=== PATIENT | male | born 1930 | race African-American/Black ===

== ENCOUNTER 2017-12-30 15:30 | Inpatient (IN) ==
[2017-12-30] MEDS ORDERED: SODIUM CHLORIDE 0.9% 1,000 ML IV STA (15:47)
[2017-12-30] MEDS ORDERED: ONDANSETRON 4 MG/2 ML VIAL IV STA (15:47)
[2017-12-30] MEDS ORDERED: PANTOPRAZOLE 40 MG VIAL IV STA (15:47)
[2017-12-30] MEDS ORDERED: ONDANSETRON 4 MG/2 ML VIAL ONE (16:21)
[2017-12-30] MEDS ORDERED: PANTOPRAZOLE 40 MG VIAL IV ONE (16:21)
[2017-12-30 16:30] LABS: Basophils % 0.1 % (0.0-0.8); Eosinophils % 0.2 % (0.00-10.9); Hemoglobin 4.3 GM/DL (14.0-18.0); Immature Granulocytes Absolute 0.13 #; Lymphocytes # 1.7 10*3/uL (1.4-4.0); Mean Corpuscular HGB Conc 28.7 GM/DL (32-36); Mean Corpuscular Hemoglobin 19 PG (27-34); Mean Corpuscular Volume 64.9 FL (87-102); Mean Platelet Volume 8.6 FL (9.6-12.0); Monocytes # 1.2 10*3/uL (0.11-0.8); Monocytes % 9.3 % (1.7-12.7); NRBC # 0.02 10*3/uL; Neutrophils # 10.2 10*3/uL (1.4-7.4); Neutrophils % 76.4 % (38.7-73.9); Platelet Count 362 T/CUMM (130-400); Red Blood Count 2.31 MC/CUMM (3.8-5.5); Red Cell Distribution Width 20.2 % (9.3-17.3); White Blood Count 13.4 T/CUMM (4-12)
[2017-12-30 16:52] LABS: Alanine Aminotransferase 15 U/L (16-61); Albumin 3.5 G/DL (3.4-5.0); Alkaline Phosphatase 81 U/L (45-117); Amylase 77 U/L (25-115); Aspartate Amino Transferase 12 U/L (0-37); Blood Urea Nitrogen 20 MG/DL (7-18); Calcium 9.3 MG/DL (8.5-10.1); Glucose 146 MG/DL (74-106); Osmolality,Calculated 273.2 MOS/KG (273-304); Potassium 3.5 MMOL/L (3.5-5.1); Sodium 134 MMOL/L (136-145); Total Protein 6.9 G/DL (6.4-8.3)
[2017-12-30 16:54] LABS: Troponin I Only 0.052 NG/ML (0.00-0.045)
[2017-12-30 16:58] LABS: Lactic Acid 2.7 MMOL/L (0.4-2.0)
[2017-12-30] MEDS ORDERED: SODIUM CHLORIDE 0.9% 1,000 ML IV PRN (17:28)
[2017-12-30] MEDS ORDERED: GLUCAGON 1 MG VIAL IM PRN (21:50)
[2017-12-30] MEDS ORDERED: ONDANSETRON 4 MG/2 ML VIAL IV PRN (21:50)
[2017-12-30] MEDS ORDERED: DEXTROSE 50% 25 GM/50 ML VIAL IV PRN (21:50)
[2017-12-31] MEDS ORDERED: SODIUM CHLORIDE 0.9% 1,000 ML IV PRN ×2 (00:02→15:10)
[2017-12-31] MEDS: INSULIN REGULAR 100 UNIT/ML SUBCUT SCH ×4 (04:48→19:10)
[2017-12-31 07:25] LABS: Basophils % 0.3 % (0.0-0.8); Eosinophils # 0.1 10*3/uL (0.0-0.87); Eosinophils % 0.9 % (0.00-10.9); Hematocrit 18.1 VOL% (42.0-52.0); Immature Granulocytes % 0.6 %; Immature Granulocytes Absolute 0.07 #; Lymphocytes # 1.5 10*3/uL (1.4-4.0); Lymphocytes % 12.8 % (21.2-54.2); Mean Corpuscular HGB Conc 29.3 GM/DL (32-36); Mean Corpuscular Hemoglobin 21 PG (27-34); Mean Corpuscular Volume 69.9 FL (87-102); Mean Platelet Volume 8.8 FL (9.6-12.0); Monocytes # 1.4 10*3/uL (0.11-0.8); Monocytes % 11.4 % (1.7-12.7); NRBC # 0.03 10*3/uL; Neutrophils # 8.8 10*3/uL (1.4-7.4); Platelet Count 308 T/CUMM (130-400); Red Blood Count 2.59 MC/CUMM (3.8-5.5); Red Cell Distribution Width 22.8 % (9.3-17.3); White Blood Count 11.9 T/CUMM (4-12)
[2017-12-31 07:34] LABS: Hemoglobin 5.3 GM/DL (14.0-18.0)
[2017-12-31 07:35] LABS: PT Patient Result 10.6 SECS; Partial Thromboplastin Time 26.8 SECS (0-40)
[2017-12-31 07:48] LABS: Giant Platelets Few; Hypochromasia 2+; Ovalocytes Slight; Platelet Estimate Adequate
[2017-12-31 07:58] LABS: Blood Urea Nitrogen 17 MG/DL (7-18); Calcium 8.5 MG/DL (8.5-10.1); Glucose 61 MG/DL (74-106); Osmolality,Calculated 274.7 MOS/KG (273-304); Potassium 4.1 MMOL/L (3.5-5.1); Sodium 138 MMOL/L (136-145); Troponin I Only 0.052 NG/ML (0.00-0.045)
[2017-12-31] MEDS: PANTOPRAZOLE 40 MG VIAL IV SCH (09:31)
[2017-12-31] MEDS ORDERED: GLUCAGON 1 MG VIAL IM PRN (10:48)
[2017-12-31] MEDS ORDERED: DEXTROSE 50% 25 GM/50 ML VIAL IV PRN (10:48)
[2017-12-31 11:12] LABS: Apearance,Urine Slightly Hazy (Clear); Bilirubin,Urine Negative (Negative); Blood, Urine Negative (Negative); Glucose,Urine (UA) Negative (Negative); Ketones,Urine Negative (Negative); Mucus,Urine Occasional /LPF (Occasional); Nitrite,Urine Negative (Negative); Protein,Urine Negative; Urine Color Yellow (Yellow); Urine Specific Gravity 1.009 (1.001-1.035); Urine Urobilinogen < 2.0 EU/DL (0.2-1.0); WBC,Urine <1 /HPF (0-6)
[2017-12-31 14:43] LABS: Hematocrit 23.9 VOL% (42.0-52.0); Hemoglobin 7.5 GM/DL (14.0-18.0)
[2018-01-01 04:58] LABS: Basophils % 0.2 % (0.0-0.8); Eosinophils # 0.1 10*3/uL (0.0-0.87); Hematocrit 31.7 VOL% (42.0-52.0); Hemoglobin 10.6 GM/DL (14.0-18.0); Immature Granulocytes % 0.5 %; Immature Granulocytes Absolute 0.06 #; Lymphocytes # 1.1 10*3/uL (1.4-4.0); Lymphocytes % 9.5 % (21.2-54.2); Mean Corpuscular HGB Conc 33.4 GM/DL (32-36); Mean Corpuscular Hemoglobin 25 PG (27-34); Mean Corpuscular Volume 74.2 FL (87-102); Mean Platelet Volume 8.7 FL (9.6-12.0); Monocytes # 1.3 10*3/uL (0.11-0.8); Monocytes % 10.8 % (1.7-12.7); NRBC # 0.03 10*3/uL; Neutrophils # 9.4 10*3/uL (1.4-7.4); Platelet Count 279 T/CUMM (130-400); Red Blood Count 4.27 MC/CUMM (3.8-5.5); Red Cell Distribution Width 22.9 % (9.3-17.3)
[2018-01-01 05:32] LABS: Osmolality,Calculated 277.7 MOS/KG (273-304); Potassium 3.9 MMOL/L (3.5-5.1)
[2018-01-01] MEDS: INSULIN REGULAR 100 UNIT/ML SUBCUT SCH ×3 (07:20→19:40)
[2018-01-01] MEDS: PANTOPRAZOLE 40 MG VIAL IV SCH (09:01)
[2018-01-02] MEDS: INSULIN REGULAR 100 UNIT/ML SUBCUT SCH ×2 (00:18→06:27)
[2018-01-02 06:00] LABS: Basophils # 0.1 10*3/uL (0.0-0.2); Basophils % 0.4 % (0.0-0.8); Eosinophils # 0.3 10*3/uL (0.0-0.87); Hematocrit 32.3 VOL% (42.0-52.0); Hemoglobin 10.3 GM/DL (14.0-18.0); Immature Granulocytes % 0.8 %; Lymphocytes # 1.4 10*3/uL (1.4-4.0); Lymphocytes % 10.9 % (21.2-54.2); Mean Corpuscular HGB Conc 31.9 GM/DL (32-36); Mean Corpuscular Hemoglobin 25 PG (27-34); Mean Corpuscular Volume 76.7 FL (87-102); Mean Platelet Volume 8.9 FL (9.6-12.0); Monocytes # 1.3 10*3/uL (0.11-0.8); Monocytes % 9.6 % (1.7-12.7); Neutrophils # 10.1 10*3/uL (1.4-7.4); Neutrophils % 76.3 % (38.7-73.9); Platelet Count 291 T/CUMM (130-400); Red Blood Count 4.21 MC/CUMM (3.8-5.5); Red Cell Distribution Width 23.6 % (9.3-17.3); White Blood Count 13.2 T/CUMM (4-12)
[2018-01-02 06:23] LABS: Atypical Lymphocytes Few; Microcytosis 2+; Platelet Estimate Normal
[2018-01-02 06:24] LABS: Polychromasia 1+
[2018-01-02 06:29] LABS: Calcium 7.9 MG/DL (8.5-10.1); Osmolality,Calculated 275.5 MOS/KG (273-304); Potassium 3.7 MMOL/L (3.5-5.1)
[2018-01-02 07:54] VITALS: BP 133/64
[2018-01-02 09:01] LABS: Hematocrit 34.1 VOL% (42.0-52.0); Hemoglobin 10.9 GM/DL (14.0-18.0)
[2018-01-02] MEDS: PANTOPRAZOLE 40 MG VIAL IV SCH (09:41)
== END 2018-01-02 11:00 | disposition home or self-care (01) | DRG 812 ==
LOC: EDUNIT# → EDBD → N.ED 15:30 → N.EDINP 18:46 → N.TELEN 12-31 02:17 → N.5E 01-01 11:22
PROVIDERS: ADMIT Internal Medicine; ATTEND Internal Medicine

== ENCOUNTER 2018-05-05 11:23 | Inpatient (IN) ==
[2018-05-05] MEDS ORDERED: SODIUM CHLORIDE 0.9% 500 ML IV STA (11:40)
[2018-05-05 12:44] LABS: Apearance,Urine CLEAR (Clear); Bacteria,Urine Occasional /HPF (Few); Bilirubin,Urine Negative (Negative); Blood, Urine Negative (Negative); Glucose,Urine (UA) 50 mg/dL (Negative); Ketones,Urine Negative (Negative); Mucus,Urine Occasional /LPF (Occasional); Nitrite,Urine Negative (Negative); Protein,Urine Negative; RBC,Urine <1 /HPF (0-4); Transitional Epi Cells,Urine Occasional /HPF (<1); Urine Color Yellow (Yellow); Urine Specific Gravity 1.013 (1.001-1.035); Urine Urobilinogen < 2.0 EU/DL (0.2-1.0); WBC,Urine <1 /HPF (0-6)
[2018-05-05 13:37] LABS: Basophils % 0.2 % (0.0-0.8); Eosinophils # 0.1 10*3/uL (0.0-0.87); Eosinophils % 0.9 % (0.00-10.9); Hematocrit 26.7 VOL% (42.0-52.0); Hemoglobin 8.4 GM/DL (14.0-18.0); Immature Granulocytes % 0.4 %; Immature Granulocytes Absolute 0.04 #; Lymphocytes % 10.2 % (21.2-54.2); Mean Corpuscular HGB Conc 31.5 GM/DL (32-36); Mean Corpuscular Hemoglobin 22 PG (27-34); Mean Corpuscular Volume 71.2 FL (87-102); Mean Platelet Volume 8.9 FL (9.6-12.0); Monocytes # 0.7 10*3/uL (0.11-0.8); Monocytes % 7.3 % (1.7-12.7); Neutrophils # 7.5 10*3/uL (1.4-7.4); Platelet Count 349 T/CUMM (130-400); Red Blood Count 3.75 MC/CUMM (3.8-5.5); White Blood Count 9.3 T/CUMM (4-12)
[2018-05-05 13:45] LABS: PT Patient Result 10.4 SECS; Partial Thromboplastin Time 31.8 SECS (0-40)
[2018-05-05 14:00] LABS: Alanine Aminotransferase 13 U/L (16-61); Albumin 3.1 G/DL (3.4-5.0); Alkaline Phosphatase 86 U/L (45-117); Aspartate Amino Transferase 16 U/L (0-37); Blood Urea Nitrogen 20 MG/DL (7-18); Calcium 8.6 MG/DL (8.5-10.1); Glucose 98 MG/DL (74-106); Potassium 3.5 MMOL/L (3.5-5.1); Sodium 136 MMOL/L (136-145); Total Protein 7.5 G/DL (6.4-8.3); Troponin I Only < 0.015 NG/ML (0.00-0.045)
[2018-05-05] MEDS ORDERED: ACETAMINOPHEN 325 MG TABLET PO PRN (15:11)
[2018-05-05] MEDS ORDERED: GLUCAGON 1 MG VIAL IM PRN (15:11)
[2018-05-05] MEDS ORDERED: DEXTROSE 50% 25 GM/50 ML VIAL IV PRN (15:11)
[2018-05-05] MEDS ORDERED: ONDANSETRON 4 MG/2 ML VIAL IV PRN (15:11)
[2018-05-05] MEDS: SODIUM CHLORIDE 0.9% 1,000 ML IV SCH (15:30)
[2018-05-05] MEDS: INSULIN LISPRO 100 UNIT/ML SUBCUT SCH ×2 (18:14→22:43)
[2018-05-05] MEDS: traMADol 50 MG TABLET PO PRN (18:43)
[2018-05-05] MEDS: POLYCARBOPHIL 625 MG TABLET PO SCH (20:35)
[2018-05-05] MEDS: PANTOPRAZOLE 40 MG TABLET PO SCH (20:35)
[2018-05-05] MEDS: MAGNESIUM CHLORIDE 64 MG TABLET PO SCH (20:35)
[2018-05-05] MEDS: DOCUSATE SODIUM 100 MG CAPSULE PO SCH (20:35)
[2018-05-05] MEDS ORDERED: BRIMONIDINE/TIMOLOL OPH SOLN 5 ML BOTTLE BOTH EYES SCH (21:00)
[2018-05-06] MEDS: SODIUM CHLORIDE 0.9% 1,000 ML IV SCH ×2 (00:26→15:13)
[2018-05-06 05:49] LABS: Basophils % 0.4 % (0.0-0.8); Eosinophils # 0.2 10*3/uL (0.0-0.87); Eosinophils % 1.8 % (0.00-10.9); Hemoglobin 8.1 GM/DL (14.0-18.0); Immature Granulocytes % 0.6 %; Immature Granulocytes Absolute 0.06 #; Lymphocytes # 1.1 10*3/uL (1.4-4.0); Lymphocytes % 11.4 % (21.2-54.2); Mean Corpuscular Hemoglobin 22 PG (27-34); Mean Platelet Volume 9.1 FL (9.6-12.0); Monocytes # 0.8 10*3/uL (0.11-0.8); Monocytes % 7.9 % (1.7-12.7); Neutrophils # 7.5 10*3/uL (1.4-7.4); Neutrophils % 77.9 % (38.7-73.9); Platelet Count 316 T/CUMM (130-400); Red Cell Distribution Width 26.2 % (9.3-17.3); White Blood Count 9.6 T/CUMM (4-12)
[2018-05-06 06:04] LABS: Calcium 8.3 MG/DL (8.5-10.1); Osmolality,Calculated 275.7 MOS/KG (273-304)
[2018-05-06 06:15] LABS: Hypochromasia 2+; Microcytosis 1+
[2018-05-06 06:16] LABS: Platelet Estimate Normal
[2018-05-06] MEDS: INSULIN LISPRO 100 UNIT/ML SUBCUT SCH ×4 (08:11→20:47)
[2018-05-06] MEDS: hydroCHLOROthiazide 25 MG TABLET PO SCH (08:59)
[2018-05-06] MEDS: MAGNESIUM CHLORIDE 64 MG TABLET PO SCH ×2 (08:59→21:45)
[2018-05-06] MEDS: PANTOPRAZOLE 40 MG TABLET PO SCH ×2 (08:59→21:46)
[2018-05-06] MEDS: DOCUSATE SODIUM 100 MG CAPSULE PO SCH ×2 (08:59→21:45)
[2018-05-06] MEDS ORDERED: PANTOPRAZOLE 40 MG TABLET PO SCH (09:00)
[2018-05-06] MEDS: LORATADINE 10 MG TABLET PO SCH (09:00)
[2018-05-06] MEDS: traMADol 50 MG TABLET PO PRN (09:01)
[2018-05-06 09:42] LABS: % Iron Saturation 5.6 % (18-50); Ferritin 17.4 ng/ml (26-388)
[2018-05-06] MEDS: POLYCARBOPHIL 625 MG TABLET PO SCH (21:44)
[2018-05-07] MEDS: SODIUM CHLORIDE 0.9% 1,000 ML IV SCH ×3 (01:16→21:47)
[2018-05-07 06:33] LABS: Basophils % 0.3 % (0.0-0.8); Eosinophils # 0.2 10*3/uL (0.0-0.87); Eosinophils % 1.8 % (0.00-10.9); Hematocrit 26.3 VOL% (42.0-52.0); Immature Granulocytes % 0.7 %; Immature Granulocytes Absolute 0.07 #; Lymphocytes # 1.4 10*3/uL (1.4-4.0); Lymphocytes % 14.3 % (21.2-54.2); Mean Corpuscular HGB Conc 30.4 GM/DL (32-36); Mean Corpuscular Hemoglobin 22 PG (27-34); Mean Corpuscular Volume 72.1 FL (87-102); Monocytes # 0.9 10*3/uL (0.11-0.8); Monocytes % 8.9 % (1.7-12.7); Neutrophils # 7.3 10*3/uL (1.4-7.4); Platelet Count 331 T/CUMM (130-400); Red Blood Count 3.65 MC/CUMM (3.8-5.5); Red Cell Distribution Width 26.3 % (9.3-17.3); White Blood Count 9.9 T/CUMM (4-12)
[2018-05-07 07:14] LABS: Calcium 8.6 MG/DL (8.5-10.1); Osmolality,Calculated 275.4 MOS/KG (273-304); Potassium 3.5 MMOL/L (3.5-5.1)
[2018-05-07 07:23] LABS: Hypochromasia Slight; Macrocytosis 1+; Polychromasia Slight; Target Cells Slight
[2018-05-07] MEDS: INSULIN LISPRO 100 UNIT/ML SUBCUT SCH ×4 (09:13→21:54)
[2018-05-07] MEDS: DOCUSATE SODIUM 100 MG CAPSULE PO SCH ×2 (09:14→21:49)
[2018-05-07] MEDS: LORATADINE 10 MG TABLET PO SCH (09:14)
[2018-05-07] MEDS: hydroCHLOROthiazide 25 MG TABLET PO SCH (09:14)
[2018-05-07] MEDS: PANTOPRAZOLE 40 MG TABLET PO SCH ×2 (09:14→21:49)
[2018-05-07] MEDS: MAGNESIUM CHLORIDE 64 MG TABLET PO SCH ×2 (09:14→21:49)
[2018-05-07] MEDS ORDERED: BETAMETH SODIUM PHOS/ACETATE 30 MG/5 ML VIAL IM ONE ×2 (13:30→14:00)
[2018-05-07] MEDS: POLYCARBOPHIL 625 MG TABLET PO SCH (21:49)
[2018-05-08] MEDS: SODIUM CHLORIDE 0.9% 1,000 ML IV SCH ×4 (05:47→17:25)
[2018-05-08 06:20] LABS: Basophils % 0.1 % (0.0-0.8); Hematocrit 25.8 VOL% (42.0-52.0); Hemoglobin 8.1 GM/DL (14.0-18.0); Immature Granulocytes Absolute 0.09 #; Lymphocytes # 0.4 10*3/uL (1.4-4.0); Lymphocytes % 4.1 % (21.2-54.2); Mean Corpuscular HGB Conc 31.4 GM/DL (32-36); Mean Corpuscular Hemoglobin 22 PG (27-34); Mean Corpuscular Volume 71.1 FL (87-102); Monocytes # 0.3 10*3/uL (0.11-0.8); Monocytes % 3.2 % (1.7-12.7); Neutrophils # 8.2 10*3/uL (1.4-7.4); Neutrophils % 91.6 % (38.7-73.9); Platelet Count 331 T/CUMM (130-400); Red Blood Count 3.63 MC/CUMM (3.8-5.5); Red Cell Distribution Width 25.6 % (9.3-17.3)
[2018-05-08 06:54] LABS: Anisocytosis 1+; Band Neutrophils 2 % (0-10); Calcium 8.7 MG/DL (8.5-10.1); Lymphocytes 4 % (20-55); Microcytosis 2+; Osmolality,Calculated 285.5 MOS/KG (273-304); Platelet Estimate Normal; Potassium 3.8 MMOL/L (3.5-5.1); Segmented Neutrophils 91 % (50-85); Total Cells Counted 100
[2018-05-08] MEDS: INSULIN LISPRO 100 UNIT/ML SUBCUT SCH ×4 (08:15→21:13)
[2018-05-08] MEDS: MAGNESIUM CHLORIDE 64 MG TABLET PO SCH ×2 (08:16→20:27)
[2018-05-08] MEDS: PANTOPRAZOLE 40 MG TABLET PO SCH ×2 (08:16→20:27)
[2018-05-08] MEDS: DOCUSATE SODIUM 100 MG CAPSULE PO SCH ×2 (08:16→20:27)
[2018-05-08] MEDS: hydroCHLOROthiazide 25 MG TABLET PO SCH (08:16)
[2018-05-08] MEDS: LORATADINE 10 MG TABLET PO SCH (08:18)
[2018-05-08] MEDS: QUEtiapine 25 MG TABLET PO SCH ×2 (09:10→20:27)
[2018-05-08] MEDS: POLYETHYLENE GLYCOL POWDER 17 GM PACK PO SCH (11:37)
[2018-05-08] MEDS ORDERED: HALOPERIDOL 5 MG/ML AMP IM ONE (15:49)
[2018-05-08] MEDS: POLYCARBOPHIL 625 MG TABLET PO SCH (20:27)
[2018-05-09 04:14] LABS: Basophils % 0.1 % (0.0-0.8); Eosinophils % 0.1 % (0.00-10.9); Hematocrit 25.8 VOL% (42.0-52.0); Hemoglobin 8.2 GM/DL (14.0-18.0); Immature Granulocytes % 0.8 %; Immature Granulocytes Absolute 0.11 #; Lymphocytes # 0.6 10*3/uL (1.4-4.0); Lymphocytes % 4.3 % (21.2-54.2); Mean Corpuscular HGB Conc 31.8 GM/DL (32-36); Mean Corpuscular Hemoglobin 22 PG (27-34); Mean Corpuscular Volume 69.9 FL (87-102); Monocytes # 1.1 10*3/uL (0.11-0.8); Monocytes % 7.8 % (1.7-12.7); Neutrophils # 12.2 10*3/uL (1.4-7.4); Neutrophils % 86.9 % (38.7-73.9); Platelet Count 354 T/CUMM (130-400); Red Blood Count 3.69 MC/CUMM (3.8-5.5); Red Cell Distribution Width 25.6 % (9.3-17.3); White Blood Count 14.1 T/CUMM (4-12)
[2018-05-09 04:27] LABS: Calcium 8.7 MG/DL (8.5-10.1); Osmolality,Calculated 286.4 MOS/KG (273-304); Potassium 3.4 MMOL/L (3.5-5.1)
[2018-05-09] MEDS: SODIUM CHLORIDE 0.9% 1,000 ML IV SCH (05:08)
[2018-05-09] MEDS ORDERED: HALOPERIDOL 5 MG/ML AMP IM ONE (06:00)
[2018-05-09 06:39] LABS: Band Neutrophils 2 % (0-10); Lymphocytes 6 % (20-55); Segmented Neutrophils 89 % (50-85); Total Cells Counted 100
[2018-05-09 06:41] LABS: Anisocytosis 1+; Hypochromasia 1+
[2018-05-09 06:42] LABS: Ovalocytes Few; Platelet Estimate Normal; Target Cells 1+
[2018-05-09] MEDS: QUEtiapine 25 MG TABLET PO SCH ×2 (09:11→20:37)
[2018-05-09] MEDS: POLYETHYLENE GLYCOL POWDER 17 GM PACK PO SCH (09:11)
[2018-05-09] MEDS: DOCUSATE SODIUM 100 MG CAPSULE PO SCH ×2 (09:11→20:37)
[2018-05-09] MEDS: PANTOPRAZOLE 40 MG TABLET PO SCH ×2 (09:11→20:37)
[2018-05-09] MEDS: MAGNESIUM CHLORIDE 64 MG TABLET PO SCH ×2 (09:11→20:37)
[2018-05-09] MEDS: INSULIN LISPRO 100 UNIT/ML SUBCUT SCH ×4 (09:11→20:47)
[2018-05-09] MEDS: LORATADINE 10 MG TABLET PO SCH (09:11)
[2018-05-09] MEDS: hydroCHLOROthiazide 25 MG TABLET PO SCH (09:11)
[2018-05-09] MEDS: POTASSIUM CHLORIDE INJ 20 MEQ in SODIUM CHLORIDE 0.9% 1,000 ML IV SCH (10:09)
[2018-05-09] MEDS: ALBUTEROL/IPRATROPIUM 3 ML NEB RESP TX SCH ×2 (13:07→18:59)
[2018-05-09] MEDS: POLYCARBOPHIL 625 MG TABLET PO SCH (20:37)
[2018-05-10] MEDS: ALBUTEROL/IPRATROPIUM 3 ML NEB RESP TX SCH ×4 (00:26→19:46)
[2018-05-10] MEDS: POTASSIUM CHLORIDE INJ 20 MEQ in SODIUM CHLORIDE 0.9% 1,000 ML IV SCH ×2 (00:59→20:48)
[2018-05-10 04:36] LABS: Basophils % 0.3 % (0.0-0.8); Eosinophils # 0.2 10*3/uL (0.0-0.87); Hematocrit 24.6 VOL% (42.0-52.0); Hemoglobin 7.7 GM/DL (14.0-18.0); Immature Granulocytes % 0.7 %; Immature Granulocytes Absolute 0.07 #; Lymphocytes # 1.4 10*3/uL (1.4-4.0); Mean Corpuscular HGB Conc 31.3 GM/DL (32-36); Mean Corpuscular Hemoglobin 22 PG (27-34); Mean Corpuscular Volume 70.9 FL (87-102); Mean Platelet Volume 9.1 FL (9.6-12.0); Monocytes # 1.1 10*3/uL (0.11-0.8); Monocytes % 10.8 % (1.7-12.7); Neutrophils # 7.3 10*3/uL (1.4-7.4); Neutrophils % 72.2 % (38.7-73.9); Platelet Count 334 T/CUMM (130-400); Red Blood Count 3.47 MC/CUMM (3.8-5.5); Red Cell Distribution Width 26.1 % (9.3-17.3); White Blood Count 10.1 T/CUMM (4-12)
[2018-05-10 05:12] LABS: Calcium 8.8 MG/DL (8.5-10.1); Osmolality,Calculated 286.1 MOS/KG (273-304); Potassium 3.8 MMOL/L (3.5-5.1)
[2018-05-10 06:02] LABS: Anisocytosis 1+; Microcytosis 3+; Platelet Estimate Normal
[2018-05-10] MEDS: INSULIN LISPRO 100 UNIT/ML SUBCUT SCH ×4 (08:09→22:06)
[2018-05-10] MEDS: POLYETHYLENE GLYCOL POWDER 17 GM PACK PO SCH (09:02)
[2018-05-10] MEDS: PANTOPRAZOLE 40 MG TABLET PO SCH ×2 (09:03→20:42)
[2018-05-10] MEDS: LORATADINE 10 MG TABLET PO SCH (09:03)
[2018-05-10] MEDS: hydroCHLOROthiazide 25 MG TABLET PO SCH (09:03)
[2018-05-10] MEDS: DOCUSATE SODIUM 100 MG CAPSULE PO SCH ×2 (09:03→20:42)
[2018-05-10] MEDS: QUEtiapine 25 MG TABLET PO SCH ×2 (09:03→20:42)
[2018-05-10] MEDS: MAGNESIUM CHLORIDE 64 MG TABLET PO SCH ×2 (09:03→20:42)
[2018-05-10] MEDS: POLYCARBOPHIL 625 MG TABLET PO SCH (20:42)
[2018-05-11] MEDS: ALBUTEROL/IPRATROPIUM 3 ML NEB RESP TX SCH ×2 (01:17→07:14)
[2018-05-11 06:27] LABS: Basophils % 0.3 % (0.0-0.8); Eosinophils # 0.2 10*3/uL (0.0-0.87); Eosinophils % 2.3 % (0.00-10.9); Hematocrit 24.9 VOL% (42.0-52.0); Hemoglobin 7.6 GM/DL (14.0-18.0); Immature Granulocytes % 0.6 %; Immature Granulocytes Absolute 0.06 #; Lymphocytes # 1.5 10*3/uL (1.4-4.0); Lymphocytes % 14.4 % (21.2-54.2); Mean Corpuscular HGB Conc 30.5 GM/DL (32-36); Mean Corpuscular Hemoglobin 22 PG (27-34); Mean Platelet Volume 8.6 FL (9.6-12.0); Monocytes # 1.1 10*3/uL (0.11-0.8); Monocytes % 10.2 % (1.7-12.7); Neutrophils # 7.5 10*3/uL (1.4-7.4); Neutrophils % 72.2 % (38.7-73.9); Platelet Count 333 T/CUMM (130-400); Red Blood Count 3.46 MC/CUMM (3.8-5.5); Red Cell Distribution Width 25.9 % (9.3-17.3); White Blood Count 10.4 T/CUMM (4-12)
[2018-05-11 07:04] LABS: Hypochromasia 1+; Microcytosis 2+; Ovalocytes Slight; Platelet Estimate Normal; Target Cells Slight
[2018-05-11] MEDS: INSULIN LISPRO 100 UNIT/ML SUBCUT SCH ×2 (09:38→11:58)
[2018-05-11] MEDS: POLYETHYLENE GLYCOL POWDER 17 GM PACK PO SCH (09:40)
[2018-05-11] MEDS: MAGNESIUM CHLORIDE 64 MG TABLET PO SCH (09:40)
[2018-05-11] MEDS: PANTOPRAZOLE 40 MG TABLET PO SCH (09:40)
[2018-05-11] MEDS: hydroCHLOROthiazide 25 MG TABLET PO SCH (09:40)
[2018-05-11] MEDS: QUEtiapine 25 MG TABLET PO SCH (09:41)
[2018-05-11] MEDS: DOCUSATE SODIUM 100 MG CAPSULE PO SCH (09:41)
[2018-05-11] MEDS: LORATADINE 10 MG TABLET PO SCH (09:41)
[2018-05-11 11:53] VITALS: BP 166/84
[2018-05-11] MEDS ORDERED: SODIUM CHLOR 0.9% KCL 20 MEQ 20 MEQ/1,000 ML BAG IV SCH (17:00)
== END 2018-05-11 12:38 | DRG 552 ==
LOC: N.ED 11:23 → N.EDINP 14:17 → N.2E 14:55
PROVIDERS: ADMIT Internal Medicine; ATTEND Internal Medicine

== ENCOUNTER 2018-06-01 21:49 | Inpatient (IN) ==
[2018-06-01] MEDS ORDERED: ONDANSETRON 4 MG/2 ML VIAL IV STA (22:40)
[2018-06-01] MEDS ORDERED: HYDROmorphone 2 MG/1 ML VIAL IV STA (22:40)
[2018-06-01] MEDS ORDERED: SODIUM CHLORIDE 0.9% 500 ML IV STA (22:40)
[2018-06-01 23:59] LABS: Basophils % 0.2 % (0.0-0.8); Eosinophils % 0.1 % (0.00-10.9); Hemoglobin 9.7 GM/DL (14.0-18.0); Immature Granulocytes % 0.6 %; Lymphocytes # 1.2 10*3/uL (1.4-4.0); Lymphocytes % 6.5 % (21.2-54.2); Mean Corpuscular HGB Conc 31.3 GM/DL (32-36); Mean Corpuscular Hemoglobin 23 PG (27-34); Mean Corpuscular Volume 72.1 FL (87-102); Monocytes # 1.5 10*3/uL (0.11-0.8); Monocytes % 8.3 % (1.7-12.7); Neutrophils # 15.2 10*3/uL (1.4-7.4); Neutrophils % 84.3 % (38.7-73.9); Platelet Count 390 T/CUMM (130-400); Red Cell Distribution Width 24.6 % (9.3-17.3)
[2018-06-02 00:21] LABS: Anisocytosis 1+; Poikilocytosis 1+; Target Cells Slight
[2018-06-02] MEDS ORDERED: cefTRIAXone 1,000 MG in SODIUM CHLORIDE 0.9% 100 ML IV STA (00:34)
[2018-06-02 00:43] LABS: Lactic Acid 1.4 MMOL/L (0.4-2.0)
[2018-06-02 00:50] LABS: Alanine Aminotransferase 21 U/L (16-61); Albumin 3.8 G/DL (3.4-5.0); Alkaline Phosphatase 103 U/L (45-117); Amylase 88 U/L (25-115); Aspartate Amino Transferase 28 U/L (0-37); Blood Urea Nitrogen 39 MG/DL (7-18); Calcium 9.3 MG/DL (8.5-10.1); Glucose 187 MG/DL (74-106); Sodium 136 MMOL/L (136-145); Total Protein 8.1 G/DL (6.4-8.3)
[2018-06-02 00:52] LABS: Potassium 3.8 MMOL/L (3.5-5.1)
[2018-06-02] MEDS ORDERED: MAGNESIUM SULF RIDER 2 GM in PREMIX 1 EACH IV STA (00:57)
[2018-06-02] MEDS ORDERED: SODIUM CHLORIDE 0.9% 500 ML IV STA (00:58)
[2018-06-02 00:59] LABS: Apearance,Urine CLOUDY (Clear); Bilirubin,Urine Negative (Negative); Blood, Urine Large mg/dL (Negative); Glucose,Urine (UA) Negative (Negative); Ketones,Urine 5 mg/dL (Negative); Nitrite,Urine Negative (Negative); Protein,Urine 100 MG/DL; RBC,Urine 374 /HPF (0-4); Squamous Epithelial Cell,Urine Occasional /HPF (0-10); Urine Color Yellow (Yellow); Urine Specific Gravity 1.013 (1.001-1.035); Urine Urobilinogen < 2.0 EU/DL (0.2-1.0); WBC,Urine 219 /HPF (0-6)
[2018-06-02] MEDS ORDERED: PROMETHAZINE 25 MG/1 ML VIAL ONE (01:31)
[2018-06-02] MEDS ORDERED: PROMETHAZINE 25 MG/1 ML VIAL IM STA (01:32)
[2018-06-02] MEDS ORDERED: HYDROmorphone 2 MG/1 ML VIAL IV PRN ×2 (02:37→20:52)
[2018-06-02] MEDS ORDERED: GLUCAGON 1 MG VIAL IM PRN (02:37)
[2018-06-02] MEDS ORDERED: traMADol 50 MG TABLET PO PRN (02:37)
[2018-06-02] MEDS ORDERED: LACTULOSE 20 GM/30 ML UDCUP PO PRN (02:37)
[2018-06-02] MEDS ORDERED: ONDANSETRON 4 MG/2 ML VIAL IV PRN ×2 (02:37→20:52)
[2018-06-02] MEDS ORDERED: ACETAMINOPHEN 325 MG TABLET PO PRN (02:37)
[2018-06-02] MEDS ORDERED: DEXTROSE 50% 25 GM/50 ML VIAL IV PRN (02:37)
[2018-06-02] MEDS: SODIUM CHLORIDE 0.9% 1,000 ML IV SCH ×3 (04:44→22:01)
[2018-06-02 05:05] LABS: Albumin 2.9 G/DL (3.4-5.0); Basophils % 0.2 % (0.0-0.8); Bilirubin,Total 0.6 MG/DL (0.2-1.0); Calcium 8.8 MG/DL (8.5-10.1); Eosinophils % 0.1 % (0.00-10.9); Immature Granulocytes % 1.1 %; Immature Granulocytes Absolute 0.22 #; Lymphocytes # 1.2 10*3/uL (1.4-4.0); Lymphocytes % 6.3 % (21.2-54.2); Mean Corpuscular Hemoglobin 22 PG (27-34); Mean Platelet Volume 9.2 FL (9.6-12.0); Monocytes # 1.8 10*3/uL (0.11-0.8); Monocytes % 9.1 % (1.7-12.7); Neutrophils # 16.2 10*3/uL (1.4-7.4); Neutrophils % 83.2 % (38.7-73.9); Osmolality,Calculated 282.1 MOS/KG (273-304); Platelet Count 385 T/CUMM (130-400); Potassium 3.8 MMOL/L (3.5-5.1); Red Blood Count 4.03 MC/CUMM (3.8-5.5); Red Cell Distribution Width 24.4 % (9.3-17.3); Total Protein 7.7 G/DL (6.4-8.3); White Blood Count 19.5 T/CUMM (4-12)
[2018-06-02 07:28] LABS: Amorphous Crystals,Urine Occasional /HPF (Few); Apearance,Urine Slightly Hazy (Clear); Bacteria,Urine Occasional /HPF (Few); Bilirubin,Urine Negative (Negative); Blood, Urine Large mg/dL (Negative); Glucose,Urine (UA) Negative (Negative); Ketones,Urine 5 mg/dL (Negative); Nitrite,Urine Negative (Negative); Protein,Urine 100 MG/DL; RBC,Urine 45 /HPF (0-4); Urine Color Yellow (Yellow); Urine Specific Gravity 1.013 (1.001-1.035); Urine Urobilinogen < 2.0 EU/DL (0.2-1.0); WBC,Urine 306 /HPF (0-6)
[2018-06-02] MEDS ORDERED: INSULIN LISPRO 100 UNIT/ML SUBCUT SCH (07:30)
[2018-06-02] MEDS ORDERED: INSULIN REGULAR 100 UNIT/ML SUBCUT SCH (07:30)
[2018-06-02] MEDS ORDERED: PANTOPRAZOLE 40 MG TABLET PO SCH (09:00)
[2018-06-02] MEDS: GLIMEPIRIDE 2 MG TABLET PO SCH (10:02)
[2018-06-02] MEDS: LORATADINE 10 MG TABLET PO SCH (10:03)
[2018-06-02] MEDS: amLODIPine 2.5 MG TABLET PO SCH (10:03)
[2018-06-02] MEDS: DOCUSATE SODIUM 100 MG CAPSULE PO SCH ×3 (10:03→22:08)
[2018-06-02] MEDS: hydroCHLOROthiazide 25 MG TABLET PO SCH (10:03)
[2018-06-02] MEDS: QUEtiapine 25 MG TABLET PO SCH ×3 (10:07→22:09)
[2018-06-02] MEDS: PANTOPRAZOLE 40 MG TABLET PO SCH ×3 (10:07→22:08)
[2018-06-02] MEDS: MAGNESIUM CHLORIDE 64 MG TABLET PO SCH ×3 (10:08→22:09)
[2018-06-02] MEDS: INSULIN LISPRO 100 UNIT/ML SUBCUT SCH ×4 (12:03→21:53)
[2018-06-02] MEDS: BACITRACIN OINT 0.9 GM PACK TOP SCH (13:07)
[2018-06-02] MEDS ORDERED: cefTRIAXone 1,000 MG VIAL ONE (19:39)
[2018-06-02] MEDS ORDERED: PROPOFOL 200 MG/20 ML VIAL IV ONE (20:46)
[2018-06-02] MEDS ORDERED: fentaNYL 100 MCG/2 ML VIAL ONE (20:46)
[2018-06-02] MEDS ORDERED: SEVOFLURANE 1 UNIT/15 MINUTE INH ONE (20:46)
[2018-06-02] MEDS ORDERED: PHENYLEPHRINE 10 MG/1 ML VIAL IV ONE (20:46)
[2018-06-02] MEDS ORDERED: ONDANSETRON 4 MG/2 ML VIAL ONE (20:46)
[2018-06-02] MEDS: PSYLLIUM POWDER 3.7 GM/PACK PO SCH (22:00)
[2018-06-02] MEDS: BRIMONIDINE/TIMOLOL OPH SOLN 5 ML BOTTLE BOTH EYES SCH (22:00)
[2018-06-03] MEDS: INSULIN LISPRO 100 UNIT/ML SUBCUT SCH ×6 (02:00→22:16)
[2018-06-03] MEDS: SODIUM CHLORIDE 0.9% 1,000 ML IV SCH ×3 (04:14→23:20)
[2018-06-03] MEDS: hydroCHLOROthiazide 25 MG TABLET PO SCH (08:27)
[2018-06-03] MEDS: GLIMEPIRIDE 2 MG TABLET PO SCH (08:27)
[2018-06-03] MEDS: amLODIPine 2.5 MG TABLET PO SCH (08:28)
[2018-06-03] MEDS: cefTRIAXone 1,000 MG in SYRINGE 1 EACH IV SCH (08:29)
[2018-06-03] MEDS: MAGNESIUM CHLORIDE 64 MG TABLET PO SCH ×2 (08:29→21:09)
[2018-06-03] MEDS: BRIMONIDINE/TIMOLOL OPH SOLN 5 ML BOTTLE BOTH EYES SCH ×2 (08:30→21:09)
[2018-06-03] MEDS: DOCUSATE SODIUM 100 MG CAPSULE PO SCH ×2 (08:30→21:09)
[2018-06-03] MEDS: LORATADINE 10 MG TABLET PO SCH (08:30)
[2018-06-03] MEDS: PANTOPRAZOLE 40 MG TABLET PO SCH ×2 (08:30→21:09)
[2018-06-03] MEDS: BACITRACIN OINT 0.9 GM PACK TOP SCH (08:30)
[2018-06-03] MEDS: QUEtiapine 25 MG TABLET PO SCH ×2 (08:31→21:09)
[2018-06-03] MEDS ORDERED: LEVOFLOXACIN INJ 500 MG in PREMIX 1 EACH IV ONE (09:30)
[2018-06-03 09:52] LABS: Calcium 8.1 MG/DL (8.5-10.1); Osmolality,Calculated 289.4 MOS/KG (273-304); Potassium 4.3 MMOL/L (3.5-5.1)
[2018-06-03 10:33] LABS: Basophils % 0.2 % (0.0-0.8); Eosinophils # 0.1 10*3/uL (0.0-0.87); Eosinophils % 0.5 % (0.00-10.9); Hematocrit 26.7 VOL% (42.0-52.0); Immature Granulocytes % 0.6 %; Immature Granulocytes Absolute 0.09 #; Lymphocytes # 0.9 10*3/uL (1.4-4.0); Lymphocytes % 5.8 % (21.2-54.2); Mean Corpuscular Hemoglobin 23 PG (27-34); Mean Corpuscular Volume 75.6 FL (87-102); Monocytes # 1.4 10*3/uL (0.11-0.8); Monocytes % 8.8 % (1.7-12.7); Neutrophils # 13.6 10*3/uL (1.4-7.4); Neutrophils % 84.1 % (38.7-73.9); Red Blood Count 3.53 MC/CUMM (3.8-5.5); Red Cell Distribution Width 25.1 % (9.3-17.3); White Blood Count 16.1 T/CUMM (4-12)
[2018-06-03 10:34] LABS: Platelet Count 266 T/CUMM (130-400)
[2018-06-03 10:43] LABS: Hypochromasia 1+; Platelet Estimate Adequate
[2018-06-03] MEDS: LINEZOLID INJ 600 MG in PREMIX 1 EACH IV SCH (15:09)
[2018-06-03] MEDS: PSYLLIUM POWDER 3.7 GM/PACK PO SCH (21:09)
[2018-06-04] MEDS: INSULIN LISPRO 100 UNIT/ML SUBCUT SCH ×6 (02:08→22:00)
[2018-06-04 06:28] LABS: Basophils % 0.3 % (0.0-0.8); Eosinophils # 0.2 10*3/uL (0.0-0.87); Eosinophils % 1.6 % (0.00-10.9); Hematocrit 24.5 VOL% (42.0-52.0); Hemoglobin 7.3 GM/DL (14.0-18.0); Immature Granulocytes % 0.9 %; Lymphocytes # 1.1 10*3/uL (1.4-4.0); Mean Corpuscular HGB Conc 29.8 GM/DL (32-36); Mean Corpuscular Hemoglobin 22 PG (27-34); Mean Corpuscular Volume 74.5 FL (87-102); Mean Platelet Volume 9.1 FL (9.6-12.0); Monocytes % 8.6 % (1.7-12.7); Neutrophils # 9.4 10*3/uL (1.4-7.4); Neutrophils % 79.6 % (38.7-73.9); Platelet Count 284 T/CUMM (130-400); Red Blood Count 3.29 MC/CUMM (3.8-5.5); Red Cell Distribution Width 24.5 % (9.3-17.3); White Blood Count 11.8 T/CUMM (4-12)
[2018-06-04 06:51] LABS: Hypochromasia 1+; Platelet Estimate Adequate
[2018-06-04 07:02] LABS: Calcium 7.8 MG/DL (8.5-10.1); Osmolality,Calculated 285.3 MOS/KG (273-304); Potassium 3.6 MMOL/L (3.5-5.1)
[2018-06-04] MEDS: SODIUM CHLORIDE 0.9% 1,000 ML IV SCH ×2 (08:30→16:38)
[2018-06-04 08:47] LABS: % Iron Saturation 4.6 % (18-50); Ferritin 71.2 ng/ml (26-388)
[2018-06-04] MEDS: GLIMEPIRIDE 2 MG TABLET PO SCH (08:58)
[2018-06-04] MEDS: QUEtiapine 25 MG TABLET PO SCH ×2 (09:11→21:14)
[2018-06-04] MEDS: DOCUSATE SODIUM 100 MG CAPSULE PO SCH ×2 (09:12→21:14)
[2018-06-04] MEDS: PANTOPRAZOLE 40 MG TABLET PO SCH ×2 (09:12→21:14)
[2018-06-04] MEDS: LORATADINE 10 MG TABLET PO SCH (09:12)
[2018-06-04] MEDS: MAGNESIUM CHLORIDE 64 MG TABLET PO SCH ×2 (09:12→21:14)
[2018-06-04] MEDS: hydroCHLOROthiazide 25 MG TABLET PO SCH (09:12)
[2018-06-04] MEDS: amLODIPine 2.5 MG TABLET PO SCH (09:12)
[2018-06-04] MEDS: BACITRACIN OINT 0.9 GM PACK TOP SCH (09:13)
[2018-06-04] MEDS: cefTRIAXone 1,000 MG in SYRINGE 1 EACH IV SCH (09:13)
[2018-06-04] MEDS: LINEZOLID INJ 600 MG in PREMIX 1 EACH IV SCH (10:30)
[2018-06-04] MEDS: BRIMONIDINE/TIMOLOL OPH SOLN 5 ML BOTTLE BOTH EYES SCH ×2 (10:30→21:14)
[2018-06-04] MEDS: PSYLLIUM POWDER 3.7 GM/PACK PO SCH (21:14)
[2018-06-04] MEDS: CEFUROXIME 500 MG TABLET PO SCH (21:14)
[2018-06-05] MEDS: INSULIN LISPRO 100 UNIT/ML SUBCUT SCH ×2 (02:00→05:31)
[2018-06-05] MEDS: SODIUM CHLORIDE 0.9% 1,000 ML IV SCH (02:41)
[2018-06-05 07:14] LABS: Calcium 7.9 MG/DL (8.5-10.1); Osmolality,Calculated 274.8 MOS/KG (273-304); Potassium 3.8 MMOL/L (3.5-5.1)
[2018-06-05 07:27] LABS: Basophils % 0.3 % (0.0-0.8); Eosinophils # 0.3 10*3/uL (0.0-0.87); Eosinophils % 2.4 % (0.00-10.9); Hematocrit 26.5 VOL% (42.0-52.0); Hemoglobin 8.1 GM/DL (14.0-18.0); Immature Granulocytes % 0.5 %; Immature Granulocytes Absolute 0.06 #; Lymphocytes % 8.9 % (21.2-54.2); Mean Corpuscular HGB Conc 30.6 GM/DL (32-36); Mean Corpuscular Hemoglobin 22 PG (27-34); Mean Corpuscular Volume 73.2 FL (87-102); Mean Platelet Volume 10.3 FL (9.6-12.0); Monocytes % 9.2 % (1.7-12.7); Neutrophils # 8.6 10*3/uL (1.4-7.4); Neutrophils % 78.7 % (38.7-73.9); Platelet Count 199 T/CUMM (130-400); Red Blood Count 3.62 MC/CUMM (3.8-5.5); Red Cell Distribution Width 25.2 % (9.3-17.3); White Blood Count 10.9 T/CUMM (4-12)
[2018-06-05 08:06] VITALS: BP 143/65
[2018-06-05] MEDS: CEFUROXIME 500 MG TABLET PO SCH (08:30)
[2018-06-05] MEDS: GLIMEPIRIDE 2 MG TABLET PO SCH (08:30)
[2018-06-05] MEDS: MAGNESIUM CHLORIDE 64 MG TABLET PO SCH (08:30)
[2018-06-05] MEDS: hydroCHLOROthiazide 25 MG TABLET PO SCH (08:30)
[2018-06-05] MEDS: BRIMONIDINE/TIMOLOL OPH SOLN 5 ML BOTTLE BOTH EYES SCH (08:31)
[2018-06-05] MEDS: LORATADINE 10 MG TABLET PO SCH (08:31)
[2018-06-05] MEDS: PANTOPRAZOLE 40 MG TABLET PO SCH (08:31)
[2018-06-05] MEDS: amLODIPine 2.5 MG TABLET PO SCH (08:31)
[2018-06-05] MEDS: QUEtiapine 25 MG TABLET PO SCH (08:31)
[2018-06-05] MEDS: BACITRACIN OINT 0.9 GM PACK TOP SCH (08:31)
[2018-06-05] MEDS: DOCUSATE SODIUM 100 MG CAPSULE PO SCH (08:31)
== END 2018-06-05 10:28 | disposition home health service (06) | DRG 694 ==
LOC: EDUNIT# → EDBD → N.ED 21:49 → N.EDINP 06-02 01:04 → N.2W 06-02 08:16 → N.2E 06-02 12:34
PROVIDERS: ADMIT Internal Medicine; ATTEND Internal Medicine

== ENCOUNTER 2018-06-16 11:46 | Inpatient (IN) ==
[2018-06-16] MEDS ORDERED: PANTOPRAZOLE 40 MG VIAL IV STA (12:23)
[2018-06-16] MEDS ORDERED: ONDANSETRON 4 MG/2 ML VIAL IV STA (12:23)
[2018-06-16] MEDS ORDERED: SODIUM CHLORIDE 0.9% 1,000 ML IV STA (12:23)
[2018-06-16 12:44] LABS: Basophils # 0.1 10*3/uL (0.0-0.2); Basophils % 0.3 % (0.0-0.8); Eosinophils % 0.1 % (0.00-10.9); Hematocrit 19.2 VOL% (42.0-52.0); Immature Granulocytes % 1.1 %; Immature Granulocytes Absolute 0.21 #; Lymphocytes # 2.1 10*3/uL (1.4-4.0); Mean Corpuscular HGB Conc 31.3 GM/DL (32-36); Mean Corpuscular Hemoglobin 23 PG (27-34); Mean Corpuscular Volume 73.3 FL (87-102); Mean Platelet Volume 9.1 FL (9.6-12.0); Monocytes % 5.4 % (1.7-12.7); Neutrophils # 15.4 10*3/uL (1.4-7.4); Neutrophils % 82.1 % (38.7-73.9); Platelet Count 368 T/CUMM (130-400); Red Blood Count 2.62 MC/CUMM (3.8-5.5); Red Cell Distribution Width 23.7 % (9.3-17.3); White Blood Count 18.7 T/CUMM (4-12)
[2018-06-16] MEDS ORDERED: SODIUM CHLORIDE 0.9% 1,000 ML IV PRN (12:47)
[2018-06-16 12:53] LABS: INR 1.1; PT Patient Result 11.2 SECS; Partial Thromboplastin Time 25.1 SECS (0-40)
[2018-06-16 13:08] LABS: Anisocytosis 1+
[2018-06-16 13:09] LABS: Ovalocytes Few; Poikilocytosis 1+
[2018-06-16 13:11] LABS: Hypochromasia 2+
[2018-06-16 13:22] LABS: Alanine Aminotransferase 19 U/L (16-61); Albumin 2.6 G/DL (3.4-5.0); Alkaline Phosphatase 83 U/L (45-117); Aspartate Amino Transferase 16 U/L (0-37); Bilirubin,Total < 0.39 MG/DL (0.2-1.0); Blood Urea Nitrogen 51 MG/DL (7-18); Calcium 8.7 MG/DL (8.5-10.1); Glucose 195 MG/DL (74-106); Osmolality,Calculated 286.2 MOS/KG (273-304); Potassium 4.1 MMOL/L (3.5-5.1); Sodium 134 MMOL/L (136-145); Total Protein 6.4 G/DL (6.4-8.3)
[2018-06-16] MEDS ORDERED: ACETAMINOPHEN 325 MG TABLET PO PRN (14:29)
[2018-06-16] MEDS ORDERED: ONDANSETRON 4 MG/2 ML VIAL IV PRN (14:29)
[2018-06-16] MEDS: PANTOPRAZOLE INJ 200 MG in SODIUM CHLORIDE 0.9% 250 ML IV SCH (17:04)
[2018-06-16] MEDS: BRIMONIDINE/TIMOLOL OPH SOLN 5 ML BOTTLE BOTH EYES SCH (20:06)
[2018-06-16] MEDS: QUEtiapine 25 MG TABLET PO SCH (20:07)
[2018-06-16] MEDS: DOCUSATE SODIUM 100 MG CAPSULE PO SCH (20:07)
[2018-06-17 03:45] LABS: Basophils # 0.1 10*3/uL (0.0-0.2); Basophils % 0.4 % (0.0-0.8); Eosinophils # 0.1 10*3/uL (0.0-0.87); Eosinophils % 0.6 % (0.00-10.9); Immature Granulocytes % 0.8 %; Immature Granulocytes Absolute 0.12 #; Mean Corpuscular HGB Conc 33.7 GM/DL (32-36); Mean Corpuscular Hemoglobin 26 PG (27-34); Mean Corpuscular Volume 75.6 FL (87-102); Mean Platelet Volume 9.6 FL (9.6-12.0); Monocytes % 6.8 % (1.7-12.7); Neutrophils # 10.9 10*3/uL (1.4-7.4); Neutrophils % 77.4 % (38.7-73.9); Platelet Count 203 T/CUMM (130-400); Red Blood Count 3.57 MC/CUMM (3.8-5.5); Red Cell Distribution Width 19.5 % (9.3-17.3); White Blood Count 14.1 T/CUMM (4-12)
[2018-06-17 03:49] LABS: Hemoglobin 9.1 GM/DL (14.0-18.0)
[2018-06-17 04:03] LABS: Anisocytosis 1+; Hypochromasia 1+; Poikilocytosis 1+; Target Cells 1+
[2018-06-17] MEDS: DOCUSATE SODIUM 100 MG CAPSULE PO SCH ×2 (08:44→20:24)
[2018-06-17] MEDS: QUEtiapine 25 MG TABLET PO SCH ×2 (08:44→20:24)
[2018-06-17] MEDS: BRIMONIDINE/TIMOLOL OPH SOLN 5 ML BOTTLE BOTH EYES SCH ×2 (08:46→20:25)
[2018-06-17] MEDS: traMADol 50 MG TABLET PO PRN (15:56)
[2018-06-17] MEDS: PANTOPRAZOLE INJ 200 MG in SODIUM CHLORIDE 0.9% 250 ML IV SCH (15:58)
[2018-06-17 18:33] LABS: Hematocrit 24.9 VOL% (42.0-52.0); Hemoglobin 8.2 GM/DL (14.0-18.0)
[2018-06-18 06:20] LABS: Basophils # 0.1 10*3/uL (0.0-0.2); Basophils % 0.5 % (0.0-0.8); Eosinophils # 0.1 10*3/uL (0.0-0.87); Eosinophils % 0.9 % (0.00-10.9); Hematocrit 22.7 VOL% (42.0-52.0); Hemoglobin 7.5 GM/DL (14.0-18.0); Immature Granulocytes % 0.5 %; Immature Granulocytes Absolute 0.06 #; Lymphocytes # 1.7 10*3/uL (1.4-4.0); Mean Corpuscular Hemoglobin 26 PG (27-34); Mean Corpuscular Volume 77.5 FL (87-102); Monocytes # 0.9 10*3/uL (0.11-0.8); Monocytes % 7.1 % (1.7-12.7); Neutrophils # 9.3 10*3/uL (1.4-7.4); Platelet Count 251 T/CUMM (130-400); Red Blood Count 2.93 MC/CUMM (3.8-5.5); Red Cell Distribution Width 19.6 % (9.3-17.3)
[2018-06-18] MEDS ORDERED: SODIUM CHLORIDE 0.9% 1,000 ML IV PRN (07:58)
[2018-06-18 08:42] LABS: Calcium 8.5 MG/DL (8.5-10.1); Osmolality,Calculated 293.3 MOS/KG (273-304); Potassium 4.2 MMOL/L (3.5-5.1)
[2018-06-18] MEDS ORDERED: PROPOFOL 200 MG/20 ML VIAL IV ONE (09:00)
[2018-06-18] MEDS ORDERED: PHENYLEPHRINE 1 MG/10 ML SYRINGE IV ONE (09:00)
[2018-06-18] MEDS ORDERED: LIDOCAINE 100 MG/5 ML SYRINGE ONE (09:00)
[2018-06-18] MEDS: BRIMONIDINE/TIMOLOL OPH SOLN 5 ML BOTTLE BOTH EYES SCH ×2 (09:56→21:04)
[2018-06-18] MEDS ORDERED: FUROSEMIDE 40 MG/4 ML VIAL IV ONE (10:00)
[2018-06-18] MEDS: QUEtiapine 25 MG TABLET PO SCH ×2 (10:06→21:04)
[2018-06-18] MEDS: DOCUSATE SODIUM 100 MG CAPSULE PO SCH ×2 (10:06→21:04)
[2018-06-18 16:12] LABS: Hematocrit 35.3 VOL% (42.0-52.0); Hemoglobin 11.5 GM/DL (14.0-18.0)
[2018-06-18] MEDS: PANTOPRAZOLE INJ 200 MG in SODIUM CHLORIDE 0.9% 250 ML IV SCH (16:31)
[2018-06-19 06:02] LABS: Basophils # 0.1 10*3/uL (0.0-0.2); Basophils % 0.4 % (0.0-0.8); Eosinophils # 0.1 10*3/uL (0.0-0.87); Hematocrit 32.6 VOL% (42.0-52.0); Hemoglobin 10.6 GM/DL (14.0-18.0); Immature Granulocytes % 0.7 %; Immature Granulocytes Absolute 0.08 #; Lymphocytes # 1.5 10*3/uL (1.4-4.0); Lymphocytes % 13.1 % (21.2-54.2); Mean Corpuscular HGB Conc 32.5 GM/DL (32-36); Mean Corpuscular Hemoglobin 27 PG (27-34); Mean Corpuscular Volume 81.5 FL (87-102); Mean Platelet Volume 9.2 FL (9.6-12.0); Monocytes # 0.9 10*3/uL (0.11-0.8); Monocytes % 7.2 % (1.7-12.7); Neutrophils # 9.1 10*3/uL (1.4-7.4); Neutrophils % 77.6 % (38.7-73.9); Platelet Count 241 T/CUMM (130-400); Red Cell Distribution Width 17.6 % (9.3-17.3); White Blood Count 11.8 T/CUMM (4-12)
[2018-06-19] MEDS: BRIMONIDINE/TIMOLOL OPH SOLN 5 ML BOTTLE BOTH EYES SCH ×2 (08:39→20:15)
[2018-06-19] MEDS: QUEtiapine 25 MG TABLET PO SCH ×2 (08:39→20:15)
[2018-06-19] MEDS: DOCUSATE SODIUM 100 MG CAPSULE PO SCH ×2 (08:39→20:15)
[2018-06-19] MEDS: PANTOPRAZOLE 40 MG TABLET PO SCH ×2 (08:53→20:15)
[2018-06-19] MEDS ORDERED: PANTOPRAZOLE 40 MG VIAL IV SCH ×2 (09:00→21:00)
[2018-06-19] MEDS: traMADol 50 MG TABLET PO PRN (20:17)
[2018-06-20 07:31] LABS: Basophils # 0.1 10*3/uL (0.0-0.2); Basophils % 0.6 % (0.0-0.8); Eosinophils # 0.2 10*3/uL (0.0-0.87); Eosinophils % 1.6 % (0.00-10.9); Hematocrit 31.3 VOL% (42.0-52.0); Immature Granulocytes % 0.5 %; Immature Granulocytes Absolute 0.05 #; Lymphocytes # 1.3 10*3/uL (1.4-4.0); Lymphocytes % 11.8 % (21.2-54.2); Mean Corpuscular HGB Conc 31.9 GM/DL (32-36); Mean Corpuscular Hemoglobin 26 PG (27-34); Mean Corpuscular Volume 81.1 FL (87-102); Mean Platelet Volume 9.6 FL (9.6-12.0); Monocytes # 0.8 10*3/uL (0.11-0.8); Neutrophils # 8.2 10*3/uL (1.4-7.4); Neutrophils % 77.5 % (38.7-73.9); Platelet Count 271 T/CUMM (130-400); Red Blood Count 3.86 MC/CUMM (3.8-5.5); Red Cell Distribution Width 17.8 % (9.3-17.3); White Blood Count 10.6 T/CUMM (4-12)
[2018-06-20 07:49] LABS: Calcium 8.4 MG/DL (8.5-10.1); Osmolality,Calculated 287.3 MOS/KG (273-304); Potassium 3.7 MMOL/L (3.5-5.1)
[2018-06-20] MEDS: PANTOPRAZOLE 40 MG TABLET PO SCH (09:46)
[2018-06-20] MEDS: DOCUSATE SODIUM 100 MG CAPSULE PO SCH (09:46)
[2018-06-20] MEDS: QUEtiapine 25 MG TABLET PO SCH (09:46)
[2018-06-20] MEDS: BRIMONIDINE/TIMOLOL OPH SOLN 5 ML BOTTLE BOTH EYES SCH (09:46)
[2018-06-20 12:47] VITALS: BP 145/72
== END 2018-06-20 13:32 | disposition home health service (06) | DRG 378 ==
LOC: EDUNIT# → EDBD → N.ED 11:46 → N.EDINP 12:49 → N.CC 13:25 → N.5E 06-19 12:05
PROVIDERS: ADMIT Internal Medicine; ATTEND Internal Medicine

== ENCOUNTER 2019-01-18 13:08 | Inpatient (IN) ==
[2019-01-18 14:40] LABS: Basophils % 0.4 % (0.0-0.8); Eosinophils # 0.1 10*3/uL (0.0-0.87); Eosinophils % 0.7 % (0.00-10.9); Hematocrit 28.1 VOL% (42.0-52.0); Immature Granulocytes % 0.6 %; Immature Granulocytes Absolute 0.05 #; Lymphocytes # 1.7 10*3/uL (1.4-4.0); Lymphocytes % 20.8 % (21.2-54.2); Mean Corpuscular Hemoglobin 27 PG (27-34); Mean Corpuscular Volume 84.9 FL (87-102); Mean Platelet Volume 10.3 FL (9.6-12.0); Monocytes # 0.6 10*3/uL (0.11-0.8); Neutrophils # 5.7 10*3/uL (1.4-7.4); Neutrophils % 70.5 % (38.7-73.9); Platelet Count 265 T/CUMM (130-400); Red Blood Count 3.31 MC/CUMM (3.8-5.5); White Blood Count 8.1 T/CUMM (4-12)
[2019-01-18 14:48] LABS: PT Patient Result 10.9 SECS; Partial Thromboplastin Time 27.2 SECS (0-40)
[2019-01-18 14:55] LABS: Albumin 3.4 G/DL (3.4-5.0); Bilirubin,Total 0.8 MG/DL (0.2-1.0); Calcium 8.4 MG/DL (8.5-10.1); Potassium 4.1 MMOL/L (3.5-5.1); Total Protein 7.2 G/DL (6.4-8.3)
[2019-01-18] MEDS ORDERED: SODIUM CHLORIDE 0.9% 1,000 ML IV STA (15:03)
[2019-01-18] MEDS ORDERED: PANTOPRAZOLE 40 MG VIAL IV ONE (17:37)
[2019-01-18 18:09] LABS: Apearance,Urine CLEAR (Clear); Bilirubin,Urine Negative (Negative); Blood, Urine Small mg/dL (Negative); Glucose,Urine (UA) Negative (Negative); Ketones,Urine Negative (Negative); Nitrite,Urine Negative (Negative); Protein,Urine Negative; RBC,Urine 1 /HPF (0-4); Urine Color Colorless (Yellow); Urine Specific Gravity 1.004 (1.001-1.035); Urine Urobilinogen < 2.0 EU/DL (0.2-1.0); WBC,Urine 1 /HPF (0-6)
[2019-01-18] MEDS ORDERED: ACETAMINOPHEN 325 MG TABLET PO PRN (20:26)
[2019-01-18] MEDS ORDERED: ONDANSETRON 4 MG/2 ML VIAL IV PRN (20:26)
[2019-01-18] MEDS ORDERED: FAMOTIDINE 20 MG/2 ML VIAL IV SCH (21:00)
[2019-01-18 21:41] LABS: Hemoglobin 8.9 GM/DL (14.0-18.0)
[2019-01-18] MEDS: DEXTROSE 5% NACL 0.45% 1,000 ML IV SCH (22:13)
[2019-01-18] MEDS: TIMOLOL 0.5% OPH SOLN 5 ML BOTTLE BOTH EYES SCH (22:14)
[2019-01-18] MEDS: DORZOLAMIDE 2% OPH SOLN 10 ML BOTTLE BOTH EYES SCH (22:14)
[2019-01-18] MEDS: LATANOPROST 0.005% OPH SOLN 2.5 ML BOTTLE LEFT EYE SCH (22:14)
[2019-01-19 02:41] LABS: Calcium 7.9 MG/DL (8.5-10.1); Osmolality,Calculated 276.8 MOS/KG (273-304); Potassium 3.9 MMOL/L (3.5-5.1)
[2019-01-19 03:32] LABS: Basophils % 0.4 % (0.0-0.8); Eosinophils # 0.1 10*3/uL (0.0-0.87); Eosinophils % 0.7 % (0.00-10.9); Hematocrit 24.7 VOL% (42.0-52.0); Immature Granulocytes % 0.8 %; Immature Granulocytes Absolute 0.06 #; Lymphocytes # 1.7 10*3/uL (1.4-4.0); Lymphocytes % 22.8 % (21.2-54.2); Mean Corpuscular HGB Conc 32.4 GM/DL (32-36); Mean Corpuscular Hemoglobin 28 PG (27-34); Mean Corpuscular Volume 84.9 FL (87-102); Mean Platelet Volume 10.5 FL (9.6-12.0); Monocytes # 0.7 10*3/uL (0.11-0.8); Monocytes % 9.4 % (1.7-12.7); Neutrophils % 65.9 % (38.7-73.9); Platelet Count 242 T/CUMM (130-400); Red Blood Count 2.91 MC/CUMM (3.8-5.5); Red Cell Distribution Width 13.9 % (9.3-17.3); White Blood Count 7.6 T/CUMM (4-12)
[2019-01-19] MEDS: DEXTROSE 5% NACL 0.45% 1,000 ML IV SCH ×2 (06:08→15:03)
[2019-01-19] MEDS ORDERED: SODIUM CHLORIDE 0.9% 1,000 ML IV PRN (08:23)
[2019-01-19 08:26] LABS: Hematocrit 24.8 VOL% (42.0-52.0)
[2019-01-19] MEDS: PANTOPRAZOLE 40 MG VIAL IV SCH (10:15)
[2019-01-19] MEDS: DORZOLAMIDE 2% OPH SOLN 10 ML BOTTLE BOTH EYES SCH ×2 (10:15→20:18)
[2019-01-19] MEDS: TIMOLOL 0.5% OPH SOLN 5 ML BOTTLE BOTH EYES SCH ×3 (10:16→20:18)
[2019-01-19] MEDS ORDERED: DEXTROSE 50% 25 GM/50 ML VIAL IV PRN (10:56)
[2019-01-19] MEDS ORDERED: GLUCAGON 1 MG VIAL IM PRN (10:56)
[2019-01-19 18:04] LABS: Vitamin B12 212 PG/ML (211-911)
[2019-01-19 20:13] LABS: Basophils % 0.3 % (0.0-0.8); Eosinophils # 0.1 10*3/uL (0.0-0.87); Eosinophils % 0.9 % (0.00-10.9); Hematocrit 31.4 VOL% (42.0-52.0); Immature Granulocytes % 0.5 %; Immature Granulocytes Absolute 0.04 #; Lymphocytes # 1.6 10*3/uL (1.4-4.0); Lymphocytes % 17.6 % (21.2-54.2); Mean Corpuscular HGB Conc 32.2 GM/DL (32-36); Mean Corpuscular Hemoglobin 28 PG (27-34); Mean Corpuscular Volume 85.8 FL (87-102); Mean Platelet Volume 10.1 FL (9.6-12.0); Monocytes # 0.7 10*3/uL (0.11-0.8); Neutrophils # 6.4 10*3/uL (1.4-7.4); Neutrophils % 72.7 % (38.7-73.9); Platelet Count 226 T/CUMM (130-400); Red Blood Count 3.66 MC/CUMM (3.8-5.5); Red Cell Distribution Width 14.5 % (9.3-17.3); White Blood Count 8.8 T/CUMM (4-12)
[2019-01-19 20:14] LABS: Hemoglobin 10.1 GM/DL (14.0-18.0)
[2019-01-19] MEDS: LATANOPROST 0.005% OPH SOLN 2.5 ML BOTTLE LEFT EYE SCH (20:23)
[2019-01-19 21:11] LABS: Sedimentation Rate-Westergren 36 MM/HR (0-20)
[2019-01-20] MEDS: DEXTROSE 5% NACL 0.45% 1,000 ML IV SCH ×3 (01:29→16:15)
[2019-01-20 05:54] LABS: Basophils % 0.5 % (0.0-0.8); Eosinophils # 0.1 10*3/uL (0.0-0.87); Eosinophils % 1.4 % (0.00-10.9); Hematocrit 31.1 VOL% (42.0-52.0); Immature Granulocytes % 0.6 %; Immature Granulocytes Absolute 0.05 #; Lymphocytes # 1.7 10*3/uL (1.4-4.0); Lymphocytes % 20.2 % (21.2-54.2); Mean Corpuscular HGB Conc 32.2 GM/DL (32-36); Mean Corpuscular Hemoglobin 27 PG (27-34); Mean Corpuscular Volume 84.1 FL (87-102); Mean Platelet Volume 10.2 FL (9.6-12.0); Monocytes # 0.8 10*3/uL (0.11-0.8); Monocytes % 9.5 % (1.7-12.7); Neutrophils # 5.8 10*3/uL (1.4-7.4); Neutrophils % 67.8 % (38.7-73.9); Platelet Count 207 T/CUMM (130-400); Red Cell Distribution Width 14.2 % (9.3-17.3); White Blood Count 8.5 T/CUMM (4-12)
[2019-01-20 05:59] LABS: Calcium 7.7 MG/DL (8.5-10.1); Potassium 3.2 MMOL/L (3.5-5.1)
[2019-01-20 07:25] LABS: Hemoglobin A1 (Alkaline) 97.1 % (96.5-98.5); Hemoglobin A2 (Alkaline) 2.9 % (1.5-3.5)
[2019-01-20] MEDS ORDERED: LIDOCAINE 2% 5 ML VIAL ONE (09:00)
[2019-01-20] MEDS ORDERED: PROPOFOL 200 MG/20 ML VIAL IV ONE (09:00)
[2019-01-20] MEDS: TIMOLOL 0.5% OPH SOLN 5 ML BOTTLE BOTH EYES SCH ×3 (09:10→20:34)
[2019-01-20] MEDS: PANTOPRAZOLE 40 MG VIAL IV SCH (09:10)
[2019-01-20] MEDS: DORZOLAMIDE 2% OPH SOLN 10 ML BOTTLE BOTH EYES SCH ×2 (09:10→20:34)
[2019-01-20] MEDS: POTASSIUM CHLORIDE RIDER 10 MEQ in PREMIX 1 EACH IV PRN ×6 (09:12→22:04)
[2019-01-20] MEDS: LATANOPROST 0.005% OPH SOLN 2.5 ML BOTTLE LEFT EYE SCH (20:37)
[2019-01-21] MEDS: DEXTROSE 5% NACL 0.45% 1,000 ML IV SCH ×2 (02:24→09:42)
[2019-01-21 05:53] LABS: Basophils % 0.4 % (0.0-0.8); Eosinophils # 0.2 10*3/uL (0.0-0.87); Eosinophils % 2.3 % (0.00-10.9); Hematocrit 31.4 VOL% (42.0-52.0); Hemoglobin 10.1 GM/DL (14.0-18.0); Immature Granulocytes % 0.5 %; Immature Granulocytes Absolute 0.05 #; Lymphocytes # 1.7 10*3/uL (1.4-4.0); Lymphocytes % 15.8 % (21.2-54.2); Mean Corpuscular HGB Conc 32.2 GM/DL (32-36); Mean Corpuscular Hemoglobin 27 PG (27-34); Mean Corpuscular Volume 85.3 FL (87-102); Mean Platelet Volume 10.1 FL (9.6-12.0); Monocytes # 0.9 10*3/uL (0.11-0.8); Monocytes % 8.5 % (1.7-12.7); Neutrophils # 7.7 10*3/uL (1.4-7.4); Neutrophils % 72.5 % (38.7-73.9); Platelet Count 222 T/CUMM (130-400); Red Blood Count 3.68 MC/CUMM (3.8-5.5); Red Cell Distribution Width 14.4 % (9.3-17.3); White Blood Count 10.6 T/CUMM (4-12)
[2019-01-21 06:06] LABS: Osmolality,Calculated 275.7 MOS/KG (273-304); Potassium 4.3 MMOL/L (3.5-5.1)
[2019-01-21 08:09] VITALS: BP 133/72
[2019-01-21] MEDS: TIMOLOL 0.5% OPH SOLN 5 ML BOTTLE BOTH EYES SCH (09:41)
[2019-01-21] MEDS: PANTOPRAZOLE 40 MG VIAL IV SCH (09:41)
[2019-01-21] MEDS: DORZOLAMIDE 2% OPH SOLN 10 ML BOTTLE BOTH EYES SCH (09:41)
== END 2019-01-21 09:48 | disposition home or self-care (01) | DRG 378 ==
LOC: EDBD → EDUNIT# → N.ED 13:08 → N.EDINP 15:50 → N.5E 19:11
PROVIDERS: ADMIT Internal Medicine; ATTEND Internal Medicine

== ENCOUNTER 2022-08-12 01:08 | Inpatient (IN) ==
[2022-08-12] MEDS ORDERED: ONDANSETRON 4 MG/2 ML VIAL IV STA (01:45)
[2022-08-12] MEDS ORDERED: SODIUM CHLORIDE 0.9% 500 ML IV STA (01:45)
[2022-08-12] MEDS ORDERED: MORPHINE 2 MG/1 ML SYRINGE IV STA (01:45)
[2022-08-12] MEDS ORDERED: PANTOPRAZOLE 40 MG VIAL IV STA (01:45)
[2022-08-12 02:06] LABS: Basophils % 0.3 % (0.0-0.8); Eosinophils # 0.1 10*3/uL (0.0-0.87); Eosinophils % 0.4 % (0.00-10.9); Hematocrit 29.3 VOL% (42.0-52.0); Hemoglobin 9.5 GM/DL (14.0-18.0); Immature Granulocytes % 0.4 %; Immature Granulocytes Absolute 0.05 #; Lymphocytes # 0.8 10*3/uL (1.4-4.0); Lymphocytes % 6.8 % (21.2-54.2); Mean Corpuscular HGB Conc 32.4 GM/DL (32-36); Mean Corpuscular Volume 88.5 FL (87-102); Mean Platelet Volume 9.3 FL (9.6-12.0); Monocytes # 0.7 10*3/uL (0.11-0.8); Monocytes % 5.8 % (1.7-12.7); Neutrophils % 86.3 % (38.7-73.9); Platelet Count 335 T/CUMM (130-400); Red Blood Count 3.31 MC/CUMM (3.8-5.5); Red Cell Distribution Width 13.9 % (9.3-17.3); White Blood Count 11.7 T/CUMM (4-12)
[2022-08-12 02:37] LABS: Albumin 3.7 G/DL (3.4-5.0); Bilirubin,Total 0.6 MG/DL (0.20-1.00); Calcium 9.1 MG/DL (8.5-10.1); Osmolality,Calculated 287.1 MOS/KG (273-304); Potassium 3.7 MMOL/L (3.5-5.1); Total Protein 6.5 G/DL (6.4-8.2)
[2022-08-12 03:18] LABS: Hyaline Casts,Urine 1 /LPF (0-3); Mucus,Urine Occasional /LPF (Occasional); RBC,Urine 1 /HPF (0-4); Squamous Epithelial Cell,Urine Occasional /HPF (0-10)
[2022-08-12 03:19] LABS: Bilirubin,Urine Negative (Negative); Blood, Urine Negative (Negative); Glucose,Urine (UA) Negative (Negative); Ketones,Urine Negative (Negative); Nitrite,Urine Negative (Negative); Protein,Urine 30 mg/dL (Negative); Urine Appearance Clear (Clear); Urine Color Yellow (Yellow); Urine Specific Gravity 1.015 (1.001-1.035); Urine Urobilinogen 0.2 eU/dL (<2.0); Urine pH 5.5 (4.5-8.0)
[2022-08-12] MEDS ORDERED: GLUCAGON 1 MG VIAL IM PRN (05:36)
[2022-08-12] MEDS ORDERED: SODIUM CHLORIDE 0.9% 1,000 ML IV SCH (05:36)
[2022-08-12] MEDS ORDERED: ACETAMINOPHEN 325 MG TABLET PO PRN (05:36)
[2022-08-12] MEDS ORDERED: DEXTROSE 10% 250 ML BAG IV PRN (05:38)
[2022-08-12] MEDS: ENOXAPARIN 40 MG/0.4 ML SYRINGE SUBCUT SCH (05:55)
[2022-08-12] MEDS: INSULIN REGULAR 100 UNIT/ML SUBCUT SCH ×3 (10:31→17:42)
[2022-08-12] MEDS: PANTOPRAZOLE 40 MG VIAL IV SCH (10:51)
[2022-08-12] MEDS: DOCUSATE SODIUM 100 MG CAPSULE PO SCH ×2 (10:51→20:26)
[2022-08-12] MEDS ORDERED: INFLUENZA VIRUS VACCINE 0.5 ML SYRINGE IM ONE (11:48)
[2022-08-12] MEDS: TIMOLOL 0.5% OPH SOLN 5 ML BOTTLE BOTH EYES SCH (13:48)
[2022-08-12] MEDS: DORZOLAMIDE 2% OPH SOLN 10 ML BOTTLE BOTH EYES SCH ×2 (13:48→21:57)
[2022-08-12] MEDS: POTASSIUM CHLORIDE INJ 10 MEQ in DEXTROSE 5% NACL 0.9% 1,000 ML IV SCH ×2 (16:00→17:41)
[2022-08-12] MEDS: MORPHINE 2 MG/1 ML SYRINGE IV PRN (20:27)
[2022-08-12] MEDS: LATANOPROST 0.005% OPH SOLN 2.5 ML BOTTLE LEFT EYE SCH (21:56)
[2022-08-13] MEDS: INSULIN REGULAR 100 UNIT/ML SUBCUT SCH ×4 (00:58→17:09)
[2022-08-13] MEDS: POTASSIUM CHLORIDE INJ 10 MEQ in DEXTROSE 5% NACL 0.9% 1,000 ML IV SCH ×3 (01:00→16:49)
[2022-08-13] MEDS: MORPHINE 2 MG/1 ML SYRINGE IV PRN ×2 (01:02→08:56)
[2022-08-13 05:05] LABS: Basophils % 0.1 % (0.0-0.8); Eosinophils # 0.1 10*3/uL (0.0-0.87); Eosinophils % 0.6 % (0.00-10.9); Hematocrit 25.3 VOL% (42.0-52.0); Immature Granulocytes % 0.4 %; Immature Granulocytes Absolute 0.04 #; Lymphocytes # 1.1 10*3/uL (1.4-4.0); Lymphocytes % 11.2 % (21.2-54.2); Mean Corpuscular HGB Conc 31.6 GM/DL (32-36); Mean Corpuscular Volume 91.7 FL (87-102); Mean Platelet Volume 9.4 FL (9.6-12.0); Monocytes # 0.7 10*3/uL (0.11-0.8); Monocytes % 7.7 % (1.7-12.7); Platelet Count 267 T/CUMM (130-400); Red Blood Count 2.76 MC/CUMM (3.8-5.5); White Blood Count 9.5 T/CUMM (4-12)
[2022-08-13 05:35] LABS: Alanine Aminotransferase < 9 U/L (16-61); Alkaline Phosphatase 79 U/L (45-117); Aspartate Amino Transferase 11 U/L (0-37); Blood Urea Nitrogen 26 MG/DL (7-18); Calcium 8.3 MG/DL (8.5-10.1); Carbon Dioxide 26 MMOL/L (21-32); Chloride 112 MMOL/L (98-107); Glucose 184 MG/DL (74-106); Osmolality,Calculated 290.3 MOS/KG (273-304); Potassium 4.1 MMOL/L (3.5-5.1); Sodium 141 MMOL/L (136-145); Total Protein 6.8 G/DL (6.4-8.2)
[2022-08-13] MEDS ORDERED: MAGNESIUM SULF RIDER 4 GM/100 ML PREMIX IV PRN (08:51)
[2022-08-13] MEDS ORDERED: MAGNESIUM SULF RIDER 2 GM/50 ML PREMIX IV PRN (08:51)
[2022-08-13] MEDS: DOCUSATE SODIUM 100 MG CAPSULE PO SCH ×2 (08:54→21:16)
[2022-08-13] MEDS: PANTOPRAZOLE 40 MG VIAL IV SCH (08:55)
[2022-08-13] MEDS: DORZOLAMIDE 2% OPH SOLN 10 ML BOTTLE BOTH EYES SCH ×2 (08:57→21:17)
[2022-08-13] MEDS: ENOXAPARIN 40 MG/0.4 ML SYRINGE SUBCUT SCH (08:57)
[2022-08-13] MEDS: ONDANSETRON 4 MG/2 ML VIAL IV PRN ×2 (09:00→12:34)
[2022-08-13] MEDS: TIMOLOL 0.5% OPH SOLN 5 ML BOTTLE BOTH EYES SCH (09:07)
[2022-08-13 11:01] LABS: Basophils % 0.1 % (0.0-0.8); Eosinophils # 0.1 10*3/uL (0.0-0.87); Eosinophils % 0.6 % (0.00-10.9); Hematocrit 26.3 VOL% (42.0-52.0); Hemoglobin 8.4 GM/DL (14.0-18.0); Immature Granulocytes % 0.2 %; Immature Granulocytes Absolute 0.02 #; Lymphocytes # 1.1 10*3/uL (1.4-4.0); Lymphocytes % 12.1 % (21.2-54.2); Mean Corpuscular HGB Conc 31.9 GM/DL (32-36); Mean Corpuscular Volume 90.4 FL (87-102); Mean Platelet Volume 9.9 FL (9.6-12.0); Monocytes # 0.8 10*3/uL (0.11-0.8); Monocytes % 8.9 % (1.7-12.7); Neutrophils % 78.1 % (38.7-73.9); Platelet Count 307 T/CUMM (130-400); Red Blood Count 2.91 MC/CUMM (3.8-5.5); Red Cell Distribution Width 14.1 % (9.3-17.3)
[2022-08-13 11:24] LABS: Albumin 3.3 G/DL (3.4-5.0); Bilirubin,Total 0.5 MG/DL (0.20-1.00); Calcium 8.7 MG/DL (8.5-10.1); Osmolality,Calculated 291.1 MOS/KG (273-304); Potassium 4.3 MMOL/L (3.5-5.1); Total Protein 6.8 G/DL (6.4-8.2)
[2022-08-13] MEDS: LATANOPROST 0.005% OPH SOLN 2.5 ML BOTTLE LEFT EYE SCH (21:17)
[2022-08-14] MEDS: POTASSIUM CHLORIDE INJ 10 MEQ in DEXTROSE 5% NACL 0.9% 1,000 ML IV SCH ×2 (00:40→12:27)
[2022-08-14] MEDS: INSULIN REGULAR 100 UNIT/ML SUBCUT SCH ×5 (01:37→23:59)
[2022-08-14 06:57] LABS: Basophils % 0.1 % (0.0-0.8); Eosinophils % 0.3 % (0.00-10.9); Hematocrit 22.8 VOL% (42.0-52.0); Hemoglobin 7.2 GM/DL (14.0-18.0); Immature Granulocytes % 0.3 %; Immature Granulocytes Absolute 0.02 #; Lymphocytes # 0.5 10*3/uL (1.4-4.0); Lymphocytes % 7.6 % (21.2-54.2); Mean Corpuscular HGB Conc 31.6 GM/DL (32-36); Mean Corpuscular Volume 90.5 FL (87-102); Mean Platelet Volume 9.7 FL (9.6-12.0); Monocytes % 14.7 % (1.7-12.7); Platelet Count 244 T/CUMM (130-400); Red Blood Count 2.52 MC/CUMM (3.8-5.5); White Blood Count 6.7 T/CUMM (4-12)
[2022-08-14 07:02] LABS: Alanine Aminotransferase < 9 U/L (16-61); Albumin 2.6 G/DL (3.4-5.0); Alkaline Phosphatase 69 U/L (45-117); Aspartate Amino Transferase 11 U/L (0-37); Blood Urea Nitrogen 23 MG/DL (7-18); Calcium 8.1 MG/DL (8.5-10.1); Carbon Dioxide 21 MMOL/L (21-32); Chloride 119 MMOL/L (98-107); Glucose 146 MG/DL (74-106); Osmolality,Calculated 296.6 MOS/KG (273-304); Potassium 3.6 MMOL/L (3.5-5.1); Sodium 146 MMOL/L (136-145); Total Protein 5.9 G/DL (6.4-8.2)
[2022-08-14 07:15] LABS: Band Neutrophils 14 % (0-10); Hypochromia Slight; Lymphocytes 8 % (20-55); Microcytosis Slight; Platelet Estimate Adequate; Total Cells Counted 100
[2022-08-14] MEDS ORDERED: SODIUM CHLORIDE 0.9% 1,000 ML IV PRN (08:40)
[2022-08-14] MEDS ORDERED: FUROSEMIDE 40 MG/4 ML VIAL IV PRN (08:42)
[2022-08-14 09:10] LABS: % Iron Saturation 5.7 % (18-50); Ferritin 273.6 ng/mL (26-388)
[2022-08-14] MEDS: PANTOPRAZOLE 40 MG VIAL IV SCH (09:30)
[2022-08-14] MEDS: ENOXAPARIN 40 MG/0.4 ML SYRINGE SUBCUT SCH (09:30)
[2022-08-14] MEDS: FOLIC ACID 1 MG TABLET PO SCH (09:31)
[2022-08-14] MEDS: DORZOLAMIDE 2% OPH SOLN 10 ML BOTTLE BOTH EYES SCH ×2 (09:31→20:36)
[2022-08-14] MEDS: allopurinoL 100 MG TABLET PO SCH (09:31)
[2022-08-14] MEDS: DOCUSATE SODIUM 100 MG CAPSULE PO SCH ×2 (09:31→20:35)
[2022-08-14] MEDS: TIMOLOL 0.5% OPH SOLN 5 ML BOTTLE BOTH EYES SCH (09:39)
[2022-08-14] MEDS: ONDANSETRON 4 MG/2 ML VIAL IV PRN ×2 (12:27→23:52)
[2022-08-14] MEDS: MORPHINE 2 MG/1 ML SYRINGE IV PRN (12:27)
[2022-08-14] MEDS: LATANOPROST 0.005% OPH SOLN 2.5 ML BOTTLE LEFT EYE SCH (20:36)
[2022-08-15 04:43] LABS: Basophils % 0.3 % (0.0-0.8); Eosinophils # 0.1 10*3/uL (0.0-0.87); Eosinophils % 0.9 % (0.00-10.9); Hematocrit 32.7 VOL% (42.0-52.0); Hemoglobin 10.5 GM/DL (14.0-18.0); Immature Granulocytes % 0.3 %; Immature Granulocytes Absolute 0.02 #; Lymphocytes # 0.9 10*3/uL (1.4-4.0); Lymphocytes % 13.5 % (21.2-54.2); Mean Corpuscular HGB Conc 32.1 GM/DL (32-36); Mean Corpuscular Volume 90.3 FL (87-102); Mean Platelet Volume 9.9 FL (9.6-12.0); Monocytes # 1.2 10*3/uL (0.11-0.8); Monocytes % 17.8 % (1.7-12.7); Neutrophils % 67.2 % (38.7-73.9); Platelet Count 274 T/CUMM (130-400); Red Blood Count 3.62 MC/CUMM (3.8-5.5); Red Cell Distribution Width 14.3 % (9.3-17.3); White Blood Count 6.5 T/CUMM (4-12)
[2022-08-15 05:07] LABS: Band Neutrophils 10 % (0-10); Eosinophils 2 % (0-10); Lymphocytes 13 % (20-55); Platelet Estimate Adequate; Total Cells Counted 100
[2022-08-15 05:08] LABS: Hypochromia Slight; Microcytosis Slight
[2022-08-15 05:12] LABS: Bilirubin,Total 0.4 MG/DL (0.20-1.00); Osmolality,Calculated 298.7 MOS/KG (273-304); Potassium 3.5 MMOL/L (3.5-5.1); Total Protein 6.9 G/DL (6.4-8.2)
[2022-08-15] MEDS: INSULIN REGULAR 100 UNIT/ML SUBCUT SCH ×3 (06:17→18:28)
[2022-08-15] MEDS: DOCUSATE SODIUM 100 MG CAPSULE PO SCH ×2 (09:22→20:35)
[2022-08-15] MEDS: allopurinoL 100 MG TABLET PO SCH (09:22)
[2022-08-15] MEDS: FOLIC ACID 1 MG TABLET PO SCH (09:22)
[2022-08-15] MEDS: DORZOLAMIDE 2% OPH SOLN 10 ML BOTTLE BOTH EYES SCH ×2 (09:23→20:35)
[2022-08-15] MEDS: PANTOPRAZOLE 40 MG VIAL IV SCH (09:23)
[2022-08-15] MEDS: ENOXAPARIN 40 MG/0.4 ML SYRINGE SUBCUT SCH (09:23)
[2022-08-15] MEDS: TIMOLOL 0.5% OPH SOLN 5 ML BOTTLE BOTH EYES SCH (09:30)
[2022-08-15] MEDS: POTASSIUM CHLORIDE INJ 10 MEQ in DEXTROSE 5% NACL 0.9% 1,000 ML IV SCH ×2 (09:31→09:39)
[2022-08-15] MEDS: SODIUM CHLORIDE 0.9% 1,000 ML IV SCH ×2 (12:19→20:35)
[2022-08-15] MEDS: LATANOPROST 0.005% OPH SOLN 2.5 ML BOTTLE LEFT EYE SCH (20:35)
[2022-08-16] MEDS: INSULIN REGULAR 100 UNIT/ML SUBCUT SCH ×4 (00:05→17:54)
[2022-08-16 04:10] LABS: Basophils % 0.2 % (0.0-0.8); Eosinophils # 0.1 10*3/uL (0.0-0.87); Eosinophils % 0.8 % (0.00-10.9); Hemoglobin 10.6 GM/DL (14.0-18.0); Immature Granulocytes % 0.6 %; Immature Granulocytes Absolute 0.05 #; Lymphocytes # 1.4 10*3/uL (1.4-4.0); Lymphocytes % 16.2 % (21.2-54.2); Mean Corpuscular HGB Conc 32.1 GM/DL (32-36); Mean Corpuscular Volume 90.2 FL (87-102); Mean Platelet Volume 9.6 FL (9.6-12.0); Monocytes # 1.2 10*3/uL (0.11-0.8); Monocytes % 14.4 % (1.7-12.7); Neutrophils % 67.8 % (38.7-73.9); Platelet Count 282 T/CUMM (130-400); Red Blood Count 3.66 MC/CUMM (3.8-5.5); Red Cell Distribution Width 14.5 % (9.3-17.3); White Blood Count 8.3 T/CUMM (4-12)
[2022-08-16 04:33] LABS: Albumin 2.9 G/DL (3.4-5.0); Bilirubin,Total 0.5 MG/DL (0.20-1.00); Calcium 8.3 MG/DL (8.5-10.1); Osmolality,Calculated 295.7 MOS/KG (273-304); Potassium 3.7 MMOL/L (3.5-5.1); Total Protein 6.5 G/DL (6.4-8.2)
[2022-08-16 04:49] LABS: Eosinophils 1 % (0-10); Lymphocytes 18 % (20-55); Total Cells Counted 100
[2022-08-16 04:52] LABS: Platelet Estimate Adequate
[2022-08-16] MEDS: SODIUM CHLORIDE 0.9% 1,000 ML IV SCH ×2 (06:45→21:50)
[2022-08-16] MEDS: LACTATED RINGERS 1,000 ML IV SCH (10:06)
[2022-08-16] MEDS ORDERED: ETOMIDATE 20 MG/10 ML VIAL IV ONE (10:15)
[2022-08-16] MEDS ORDERED: LIDOCAINE 2% 5 ML VIAL ONE (10:15)
[2022-08-16] MEDS ORDERED: propofoL 200 MG/20 ML VIAL IV ONE (10:15)
[2022-08-16] MEDS: DOCUSATE SODIUM 100 MG CAPSULE PO SCH ×2 (13:13→20:00)
[2022-08-16] MEDS: TIMOLOL 0.5% OPH SOLN 5 ML BOTTLE BOTH EYES SCH (13:16)
[2022-08-16] MEDS: DORZOLAMIDE 2% OPH SOLN 10 ML BOTTLE BOTH EYES SCH ×2 (13:18→20:00)
[2022-08-16] MEDS: FOLIC ACID 1 MG TABLET PO SCH (13:21)
[2022-08-16] MEDS: allopurinoL 100 MG TABLET PO SCH (13:21)
[2022-08-16] MEDS: ENOXAPARIN 40 MG/0.4 ML SYRINGE SUBCUT SCH (13:23)
[2022-08-16] MEDS: PANTOPRAZOLE 40 MG VIAL IV SCH (13:55)
[2022-08-16] MEDS: LATANOPROST 0.005% OPH SOLN 2.5 ML BOTTLE LEFT EYE SCH (20:00)
[2022-08-17] MEDS: INSULIN REGULAR 100 UNIT/ML SUBCUT SCH ×4 (02:25→17:37)
[2022-08-17 05:05] LABS: Basophils % 0.1 % (0.0-0.8); Eosinophils # 0.1 10*3/uL (0.0-0.87); Eosinophils % 0.6 % (0.00-10.9); Hematocrit 31.2 VOL% (42.0-52.0); Hemoglobin 9.8 GM/DL (14.0-18.0); Immature Granulocytes % 0.6 %; Immature Granulocytes Absolute 0.06 #; Lymphocytes # 1.4 10*3/uL (1.4-4.0); Lymphocytes % 14.2 % (21.2-54.2); Mean Corpuscular HGB Conc 31.4 GM/DL (32-36); Mean Platelet Volume 9.7 FL (9.6-12.0); Monocytes # 1.1 10*3/uL (0.11-0.8); Monocytes % 10.8 % (1.7-12.7); Neutrophils % 73.7 % (38.7-73.9); Platelet Count 256 T/CUMM (130-400); Red Blood Count 3.39 MC/CUMM (3.8-5.5); Red Cell Distribution Width 14.6 % (9.3-17.3); White Blood Count 9.7 T/CUMM (4-12)
[2022-08-17 05:25] LABS: Calcium 8.2 MG/DL (8.5-10.1); Osmolality,Calculated 291.8 MOS/KG (273-304); Potassium 3.4 MMOL/L (3.5-5.1)
[2022-08-17] MEDS: LACTATED RINGERS 1,000 ML IV SCH (08:58)
[2022-08-17] MEDS: SODIUM CHLORIDE 0.9% 1,000 ML IV SCH ×2 (09:47→17:38)
[2022-08-17] MEDS: ENOXAPARIN 40 MG/0.4 ML SYRINGE SUBCUT SCH (09:48)
[2022-08-17] MEDS: DORZOLAMIDE 2% OPH SOLN 10 ML BOTTLE BOTH EYES SCH ×2 (09:48→20:00)
[2022-08-17] MEDS: FOLIC ACID 1 MG TABLET PO SCH (09:48)
[2022-08-17] MEDS: TIMOLOL 0.5% OPH SOLN 5 ML BOTTLE BOTH EYES SCH (09:48)
[2022-08-17] MEDS: DOCUSATE SODIUM 100 MG CAPSULE PO SCH ×2 (09:48→20:00)
[2022-08-17] MEDS: PANTOPRAZOLE 40 MG VIAL IV SCH (09:48)
[2022-08-17] MEDS: allopurinoL 100 MG TABLET PO SCH (09:48)
[2022-08-17] MEDS ORDERED: POTASSIUM CHLORIDE RIDER 10 MEQ/100 ML PREMIX IV PRN (13:52)
[2022-08-17] MEDS: POTASSIUM CHLORIDE 20 MEQ TABLET PO PRN ×3 (16:00→20:00)
[2022-08-17] MEDS: LATANOPROST 0.005% OPH SOLN 2.5 ML BOTTLE LEFT EYE SCH (20:00)
[2022-08-18] MEDS: INSULIN REGULAR 100 UNIT/ML SUBCUT SCH ×2 (00:45→05:50)
[2022-08-18] MEDS: SODIUM CHLORIDE 0.9% 1,000 ML IV SCH (01:00)
[2022-08-18 05:26] LABS: Basophils % 0.2 % (0.0-0.8); Eosinophils % 0.3 % (0.00-10.9); Hemoglobin 10.2 GM/DL (14.0-18.0); Immature Granulocytes % 1.2 %; Immature Granulocytes Absolute 0.16 #; Lymphocytes # 1.6 10*3/uL (1.4-4.0); Lymphocytes % 11.7 % (21.2-54.2); Mean Corpuscular HGB Conc 31.9 GM/DL (32-36); Mean Corpuscular Volume 90.4 FL (87-102); Mean Platelet Volume 9.4 FL (9.6-12.0); Monocytes # 1.4 10*3/uL (0.11-0.8); Monocytes % 10.4 % (1.7-12.7); Neutrophils % 76.2 % (38.7-73.9); Platelet Count 256 T/CUMM (130-400); Red Blood Count 3.54 MC/CUMM (3.8-5.5); Red Cell Distribution Width 14.6 % (9.3-17.3); White Blood Count 13.2 T/CUMM (4-12)
[2022-08-18 05:45] LABS: Calcium 7.8 MG/DL (8.5-10.1); Osmolality,Calculated 285.1 MOS/KG (273-304); Potassium 3.7 MMOL/L (3.5-5.1)
[2022-08-18] MEDS ORDERED: GLUCAGON 1 MG VIAL IM PRN (06:14)
[2022-08-18] MEDS ORDERED: DEXTROSE 50% 25 GM/50 ML VIAL IV PRN (06:14)
[2022-08-18] MEDS: allopurinoL 100 MG TABLET PO SCH (10:07)
[2022-08-18] MEDS: DOCUSATE SODIUM 100 MG CAPSULE PO SCH (10:07)
[2022-08-18] MEDS: FOLIC ACID 1 MG TABLET PO SCH (10:08)
[2022-08-18] MEDS: PANTOPRAZOLE 40 MG VIAL IV SCH (10:09)
[2022-08-18 11:38] VITALS: BP 168/71
== END 2022-08-18 14:46 | disposition home health service (06) | DRG 389 ==
LOC: EDUNIT# → EDBD → N.ED 01:08 → N.EDINP 01:08 → N.5E 10:10
PROVIDERS: ADMIT Internal Medicine; ATTEND Internal Medicine